=== PATIENT | male | born 1950 | race Caucasian/White ===

== ENCOUNTER 2016-10-01 09:05 | Emergency (ER) | payer OTHER ==
[~2016-10-01] VITALS: Ht 182.9 cm; Wt 77.1 kg
[2016-10-01] MEDS ORDERED: COUGHTAB 400400 MG PO (09:29)
[2016-10-01] MEDS ORDERED: FLONASE 50 MCG16 GM (09:29)
[2016-10-01] MEDS ORDERED: ZITHROMAX Z PA250 MG PO (09:29)
--- NOTE | 2016-10-01 09:29 | [facility]gent Treatment Center Report ---
History of Present Issue Date/Time Seen by Provider 10/01/16 0921 Visit Reason Pt arrived:Walked Presenting Problem:PT C/O PRODUCTIVE COUGH WITH SOME DRAINAGE Location if Accident: Onset of symptoms date/time:/ or onset unknown for:MEDICAL HX UNKNOWN Have you (or family members/close friends) recently traveled outside the [place]? N If Yes, where/when: Have you had exposure to infectious disease within the past month? TB? Other? Specify: Patient states that he is having drainage from his sinuses states that when he blows his nose mucus is thick, green/mata in color states that it is making him have a cough and feels pressure behind his eyes thinks he has a sinus infection ALLERGIES Coded Allergies: Penicillins (Mild, 10/01/16) Home Medications Reported Medications No Known Home Medications History Medical History General CAD? No Angina: No DC: No Hypertension? No Hyperlipidemia? No CHF? No DVT? No PE? No COPD? No Asthma? No Anemia? No GERD? No Gastric ulcers? No GI Bleed? No Hernia? No Thyroid Problems? No Hypothyroidism? No CVA? No Seizures? No Diabetes? No Renal Insuffiency? No UTI? No Stones? No BPH? No GB Disease: No Nephritic Syndrome? No Asplenia? No Hepatitis? No Sickle Cell Disease? No Arthritis? No Migraines? No Cataracts? No Glaucoma? No MRSA? No HIV? No TB? No Anxiety? No Depression? No Cancer? No More? No Immunization HX DT/Tetanus 1-4 Years Ago Surgical Hx Previous Surgery?Y LOWER BACK Family History Family HX Diabetes No CAD No Hypertension No Hyperlipidemia No Cancer Yes TB Yes Social History Smoking Hx Smoker: Never Smoker Tobacco: No Packs/day < 1 Pack Alcohol Alcohol: Yes Review of Systems All Other Systems Reviewed and Negative ENT nose discharge, nose congestion, throat pain. Respiratory cough Physical Exam Vital Signs Vital Signs Date Time Temp Pulse Resp B/P Pulse O2 O2 Flow FiO2 Ox Delivery Rate 10/01 0914 98.9 77 16 150/98 98 General Appearance normal appearance Ear, Nose, Throat sinus pain/drainage, nasal congestion, throat red, irritated, Respiratory Status Yes: trachea midline, chest symmetrical, non tender chest. No: respiratory distress. Cardiovascular normal exam, no peripheral edema, no gallop, no JVD Neurologic alert, normal exam Medical Decision Making LABS/Meds/Orders Pt receiving controlled substance in ED? No Departure Departure Time of Disposition 923 Disposition DC Home or Self Care(routine) Clinical Impression Primary Impression: Sinus infection Qualifiers: Sinusitis location: maxillary Chronicity: unspecified Qualified Code: J32.0 - Chronic maxillary sinusitis Condition STABLE Referrals New FRANCES,Mariama Farah (PCP/Family) Patient Instructions DI for Sinusitis Additional Instructions Gargle warm salt water for throat irritation Over the counter Motrin/Tylenol as needed for pain or fever Follow up family doctor Discharge Counseling Counseled pt/family regarding diagnosis, medications/RX, home care, follow up needs Prescriptions Current Visit Scripts Azithromycin (Zithromycin (Z-NORAH) 250MG Tab) 250 MG PO DAILY #6 TAB TAKE TWO (2) TABLETS ON DAY 1, THEN ONE (1) TABLET DAY #2 THRU #5 Fluticasone Propionate (Flonase 50 Mcg Nasal [place]) 2 SPRAY NA DAILY #1 BOT Guaifenesin (Coughtab 400) 400 MG PO Q4HP PRN cough #24 TAB at 0982
[2016-10-01 09:33] VITALS: BP 150/98
== END 2016-10-01 09:33 | disposition home or self-care (01) ==
LOC: UTC 09:05
DX: J32.0 Chronic maxillary sinusitis (principal)